=== PATIENT | male | born 1980 | race Caucasian/White ===

== ENCOUNTER 2020-08-23 18:07 | Emergency (ER) | payer BC, OTHER ==
[~2020-08-23] VITALS: Ht 177.8 cm; Wt 86.2 kg
[2020-08-23] MEDS ORDERED: CEPHALEXIN500 MG PO (19:05)
[2020-08-23 19:22] VITALS: BP 114/83
== END 2020-08-23 19:22 | disposition home or self-care (01) ==
LOC: EDBD 18:07 → ER 18:07
DX: S90.852A Superficial foreign body, left foot, initial encounter (principal); Y24.8XXA Other firearm discharge, undetermined intent, initial encounter; Y93.89 Activity, other specified; Y92.89 Other specified places as the place of occurrence of the external cause; Y99.8 Other external cause status